=== PATIENT | male | born 1970 ===

== ENCOUNTER 2017-10-27 02:51 | Emergency (ER) | payer SELFPAY ==
[~2017-10-27] VITALS: Ht 190.5 cm; Wt 95.0 kg
[2017-10-27 02:56] VITALS: Ht 190.5 cm; Wt 95.0 kg
[2017-10-27 04:56] LABS: BASOPHILS 0.2 % (0-2); EOSINOPHILS 2.1 % (0-7); HEMATOCRIT 43.4 % (42.0-54.0); HEMOGLOBIN 15.1 g/dL (13.5-17.5); IMMATURE GRANULOCYTES 1.2 % (0-5); LYMPHOCYTES 37.6 % (15-50); MCHC 34.8 g/dL (31.0-37.0); MCV 97.7 fL (80.0-100.0); MEAN PLATELET VOLUME 9.4 fL (7.4-10.4); NEUTROPHILS 50.9 % (40-80); PLATELET COUNT 220 10x3/uL (130-400); RBC 4.44 10x6/uL (4.20-6.10); RDW 13.2 % (11.5-14.5); WBC 5.7 10x3/uL (4.8-10.8)
[2017-10-27 07:52] VITALS: BP 148/86
== END 2017-10-27 07:53 | disposition home or self-care (01) ==
LOC: D.ER 02:51
PROVIDERS: Family Medicine
DX: S00.12XA Contusion of left eyelid and periocular area, initial encounter (principal); W18.30XA Fall on same level, unspecified, initial encounter; Y93.89 Activity, other specified; Y92.142 Bathroom in prison as the place of occurrence of the external cause; I10 Essential (primary) hypertension; F17.200 Nicotine dependence, unspecified, uncomplicated